=== PATIENT | male | born 1955 | race Caucasian/White ===

== ENCOUNTER 2024-06-11 11:04 | Outpatient (CLI) | payer OTHER, SELFPAY ==
[2024-06-11 18:33] LABS: Basophils % 0.8 % (0.1-2.0); Eosinophils % 0.9 % (0.1-12.0); Hematocrit 46.7 % (42.0-52.0); Hemoglobin 15.4 g/dL (14.1-18.0); Lymphocytes # 1.5 K/mm3 (0.7-4.5); Lymphocytes % 37.1 % (10-50); Mean Corpuscular HGB Conc 33.1 g/dL (31.8-35.4); Mean Corpuscular Hemoglobin 27.7 pg (27.0-31.2); Mean Corpuscular Volume 83.9 fl (80-94); Mean Platelet Volume 8.7 fl (7.4-10.4); Monocytes # 0.2 K/mm3 (0.1-1.0); Monocytes % 4.3 % (1.7-9.3); Neutrophils # 2.3 K/mm3 (1.8-7.8); Neutrophils % 56.9 % (37.0-80.0); Platelet Count 296 K/mm3 (142-424); Red Blood Count 5.57 M/mm3 (4.60-6.20); White Blood Count 4.1 K/mm3 (4.8-10.8)
[2024-06-11 18:38] LABS: Albumin Level 4.9 g/dl (3.5-5.0); Sodium 137 mmol/L (136-145)
[2024-06-11 18:39] LABS: Potassium 4.6 mmoL/L (3.5-5.1)
[2024-06-11 18:41] LABS: Alanine Aminotransferase 18 U/L (12-78); Albumin/Globulin Ratio 1.8 (1.1-1.8); Alkaline Phosphatase 98 U/L (38-126); Aspartate Amino Transferase 27 U/L (17-59); Blood Urea Nitrogen 13 mg/dl (9-20); Carbon Dioxide 28 mmol/L (22.0-30.0); Estimated Glomerular Filt Rate 84 ml/min (>60); GFR (African American) 102 ML/MIN (>60); Globulin 2.7 g/dL (1.3-3.2); Total Protein,Serum 7.6 g/dl (6.3-8.2)
[2024-06-11 18:42] LABS: Chol/HDL Ratio 4.2 (1-3.5); Cholesterol 242 mg/dl (140-200); Glucose 96 mg/dl (74-100); HDL Cholesterol 57 mg/dl (40-60); Triglycerides 141 mg/dl (30-150); VLDL Cholesterol 28 mg/dL (0-40)
[2024-06-11 18:54] LABS: Direct LDL Cholesterol 132.18 mg/dL (100-129)
[2024-06-11 18:55] LABS: 25-OH Vitamin D, Total 31.3 ng/mL (30-100)
[2024-06-11 19:13] LABS: Prostate Specific Ag Screen 0.9 ng/ml (0.0-4.0)
[2024-06-11 20:42] LABS: Anion Gap 11.6 mEq/L (5-15); Chloride 102 mmol/L (98-107)
[2024-06-12 03:34] LABS: Thyroid Stimulating Hormone 1.35 uIU/mL (0.465-4.68)
== END 2024-06-11 23:59 | disposition home or self-care (01) ==
LOC: LAB.DROPOF 06-12 11:05
PROVIDERS: PCP Family Medicine; Visit Provider Family Medicine
DX: Z00.00 Encounter for general adult medical examination without abnormal findings (principal)
CPT/HCPCS: 80050; 80053; 80061; 82306; 84443; 85025; G0103